=== PATIENT | male | born 1985 | race Two or more races ===

== ENCOUNTER → 2022-10-02 09:57 | Outpatient (BNVA) | payer OTHER, SELFPAY | PROVIDERS: PCP Internal Medicine; Visit Provider Nurse Practitioner Family | DX: M47.812 Spondylosis without myelopathy or radiculopathy, cervical region (principal); M54.6 Pain in thoracic spine; M54.2 Cervicalgia; G43.909 Migraine, unspecified, not intractable, without status migrainosus | CPT/HCPCS: 99202 ==

== ENCOUNTER 2022-10-05 11:22 | Outpatient (REF) | payer OTHER, SELFPAY ==
--- NOTE | ~2022-10-05 | XR_ITS ---
EXAMINATION: XR THORACIC SPINE CLINICAL INFORMATION: Pain. COMPARISON: None available. TECHNIQUE: 3 views of the thoracic spine were obtained. FINDINGS: There is normal thoracic kyphosis. The vertebral heights, alignment and disc heights are normal. No visible acute fracture, dislocation or subluxation seen. Prevertebral soft tissues are normal. XR/XR thoracic spine 3V IMPRESSION: Unremarkable dorsal spine exam.
== END 2022-10-05 11:23 | disposition home or self-care (01) ==
LOC: HO.XRAY 11:22
PROVIDERS: PCP Internal Medicine; Visit Provider Nurse Practitioner Family
DX: M54.6 Pain in thoracic spine (principal)
CPT/HCPCS: 72072

== ENCOUNTER 2022-12-24 10:00 | Outpatient (RCR) | payer OTHER, SELFPAY ==
--- NOTE | 2022-11-27 09:37 | MHC.PT.EP ---
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 Pt is deemed an appropriate candidate to receive skilled PT services to address their physical impairments in order to improve their functional ability. Frequency and Duration: The patient will be seen 2 x/ wk x 5 wks. Short Term Goals: Initiate home program. Train Driver Goals: I with home Program. Pt will perform transfers with managed Sx; initial: 8-10/10 pain at times. Improve back questionnaire by at least 9 points. Pt will be able to lift items from the ground with managed Sx. Improve core strength to at least good, initial Fair (-) limited by pain and weakness. Treatment Plan: Modalities to reduce pain, spasms and effusion. Manual therapy to restore motion and function. Therapeutic exercise to improve strength and flexibility. Neuromuscular re-education for posture and balance. Therapeutic activities to return to functional activities of daily living. Electronically signed by: Harsha Carey PT. Please sign and return to therapist. Thank you for your referral.
== END 2023-01-18 13:20 | disposition home or self-care (01) ==
LOC: HO.PTCHIC 10:00
PROVIDERS: PCP Internal Medicine; Visit Provider Nurse Practitioner Family
DX: M47.812 Spondylosis without myelopathy or radiculopathy, cervical region (principal); M54.2 Cervicalgia; M54.6 Pain in thoracic spine
CPT/HCPCS: 97110; 97140; 97161

== ENCOUNTER 2023-04-23 12:49 | Emergency (ER) | payer OTHER, SELFPAY ==
[2023-04-23 14:08] VITALS: BP 126/84; PULSE 84; RESP 16; TEMP 36.4; O2SAT 98; BMI 29.6
--- NOTE | 2023-04-23 14:46 | ED.GENADULT ---
HPI - General Adult General Chief complaint: Dizziness Stated complaint: drainage back Time Seen by Provider: 04/23/23 20:13 History of Present Illness HPI narrative: The patient is a 38-year-old male who was referred to the emergency room by his PCP for a spinal tap to check for possible neuro syphilis. The patient says that earlier this week on Wednesday he had testing at [facility] that indicated that he had tested positive for syphilis. Apparently he has been having some headaches and nausea and vomiting and dizziness and he was advised to come to the emergency room to have an LP to check for neurosyphilis. He has not had a fever. He has not had any neck stiffness. He has not had any penile discharge or other genital complaints. Related Data Home Medications Medication Instructions Recorded Confirmed atorvastatin 20 mg tablet 20 mg PO DAILY 10/02/22 gabapentin 300 mg capsule 300 mg PO BID 10/02/22 ibuprofen 800 mg tablet 800 mg PO Q8H PRN pain 10/02/22 propranolol 20 mg tablet 20 mg PO DAILY 10/02/22 Previous Rx's Medication Instructions Recorded magnesium glycinate 100 mg tablet 200 mg (2 x 100 mg) PO DAILY 10/02/22 migraines 30 days #60 tabs riboflavin (vitamin B2) 400 mg 400 mg PO DAILY migraine 90 days 10/02/22 tablet #90 tabs tizanidine 2 mg tablet 2 mg PO TID PRN muscle spasticity 10/02/22 30 days #90 tabs Allergies Allergy/AdvReac Type Severity Reaction Status Date / Time No Known Allergies Allergy Verified 10/02/22 10:03 Review of Systems Review of Systems: Yes all other systems are reviewed and are negative [facility] Past Medical History Medical History (Updated 04/24/23 @ 00:03 by Derek Weinstein) Migraine History of seizure Numbness of extremity Chiari I malformation JULIO CESAR (obstructive sleep apnea) Social History Social History (Updated 10/02/22 @ 10:[address]) Alcohol intake: former Year quit: 2011 Patient Tobacco Use Status: Former Tobacco user Quit Date: 05/24/2012 Tobacco use type: Cigarette Smoked in Last 30 Days: No Use of substances other than those prescribed or required for medical reasons: No Advance Directives: No Advance Directives Information Provided: No Physical Exam ED Vital Signs: Vital Signs - 24 hr 04/23/23 20:00 04/23/23 22:39 Temperature 98.3 F 98.0 F Pulse Rate 68 64 Respiratory Rate 14 14 Blood Pressure 124/75 128/78 Pulse Oximetry 98 96 Oxygen Delivery Method Room Air Room Air BMI result Body Mass Index 29.6 Const Other: The patient is awake, alert, pleasant, cooperative. He does not appear in acute distress. HENMT Other: The appearance of face is unremarkable. Mucous membranes moist. Eyes Other: Pupils are round equal, conjunctivae clear, extraocular movements intact. Neck Other: Neck is entirely supple. Resp Other: Lungs are clear bilaterally Cardio Other: The patient has a regular rate and rhythm with no murmur GI Other: Abdomen is soft nontender Back/Spine/Pelvis Other: Appearance of the back is unremarkable. Skin Other: Skin is dry and unremarkable. No rash. Neuro Other: The patient is awake and alert. Mentation is normal. Neck is supple. Seems completely neurologically intact. Extrem Other: No peripheral edema. Extremities are normal. Course Course Course Narrative: This is an RME: Additional HPI, ROS, PE not included below will be deferred to primary provider. Patient is a 38-year-old male who presents to the emergency department the from [place]. One week ago he had labs obtained which revealed a syphilis infection, was referred to the emergency department to have LP prior to treatment, they expressed concern for neurosyphilis. He reports dizziness, headache, nausea, and pain to the genitalia. 2-3 months with pain. Reviewed records, he has reactive RPR, titer 1:2, do not see treponemal testing results. Plan: labs, placed in WR pending bed availability Procedures Lumbar Puncture Time Out Performed: Yes Patient Position: upright Skin Prep: 0.5% Chlorhexidine/Alcohol Local Anesthetic: lidocaine 1% Amount of anesthesia used (mL): 5 Spinal Needle Gauge: 20G Interspace Used: L3-L4 Fluid Initially Obtained: clear Complications: none Medical Decision Making Medical Decision Making MDM Narrative: Patient is a 38-year-old male who recently tested positive for syphilis at his PCPs office at the [facility] in [place]. He apparently complained of some headaches and dizziness and he was advised to come to the emergency room for a spinal tap to check for neurosyphilis. The patient looks entirely well and has a supple neck. He seems neurologically intact. Nevertheless given the recommendation by his PCP's office I spoke to the patient about a spinal tap. The patient was agreeable to the procedure and consented to it. The patient had a spinal tap done in the sitting position. This was done under usual sterile conditions. The tap was successful on my 2nd attempt using a 20 gauge needle. The patient tolerated the procedure well. There are no white cells in the fluid. Protein and glucose are normal. Fluid was sent for VDRL and HIV. The patient apparently has an appointment at his PCPs office on Wednesday, in 3 days. Apparently this is to start treatment for syphilis. The patient says that the PCP wanted to get a spinal tap for treatment in case of neurosyphilis. I think this procedure and the pending VDRL satisfies the PCPs request. The patient was discharged. Lab Data 04/23/23 19:27 04/23/23 19:27 Labs: Lab Results 04/23/23 04/23/23 04/23/23 Range/Units 19:27 21:55 21:55 WBC 8.3 (4.8-10.8) X10*3/uL RBC 5.09 (4.60-5.80) X10*6/uL Hgb 14.6 (14.0-18.0) g/dl Hct 44.2 (42.0-52.0) % MCV 86.8 (80.0-98.0) fL MCH 28.7 (27.0-33.0) pg MCHC 33.0 (31.0-36.0) g/dl RDW 13.4 (11.0-16.0) % Plt Count 276 (160-400) X10*3/uL MPV 10.7 (9.4-12.4) fL Immature Gran % (Auto) 0.2 (0.0-0.4) % Neut % (Auto) 50.5 (45-73) % Lymph % (Auto) 31.7 (20-40) % Blaine % (Auto) 7.7 (2-11) % Eos % (Auto) 9.3 H (0-4) % Baso % (Auto) 0.6 (0-2) % Lymph # (Auto) 2.6 (1.2-4.9) X10*3/uL Blaine # (Auto) 0.6 (0.1-1.2) X10*3/uL Eos # (Auto) 0.8 H (0.0-0.4) X10*3/uL Baso # (Auto) 0.1 (0.0-0.2) X10*3/uL Abs Immat Gran (auto) 0.02 (0.00-0.03) X10*3/uL Absolute Neuts (auto) 4.2 (2.0-8.3) x10*3/uL Absolute Nucleated RBC 0.000 (0.0-0.012) X10*3/uL Nucleated RBC % (auto) 0.0 (0.0-0.2) /100WBC Sodium 141 (135-145) mmol/L Potassium 3.5 (3.3-5.1) mmol/L Chloride 104 (96-108) mmol/L Carbon Dioxide 29 (22-29) mmol/L Anion Gap 12 (12-20) BUN 10 (9-16) mg/dL Creatinine 0.87 (0.5-1.4) mg/dL Estim Creat Clear Calc 119.1 Estimated GFR > 60 Random Glucose 143 H (60-115) mg/dL Calcium 9.6 (8.4-10.2) mg/dL Total Bilirubin 0.6 (0.0-1.0) mg/dL AST 27 (5-37) U/L ALT 53 H (0-40) U/L Alkaline Phosphatase 85 (39-117) U/L Total Protein 7.7 (6.5-8.0) g/dL Albumin 4.5 (3.5-5.0) g/dL Urine Color Yellow Urine Appearance Clear Urine pH 6.0 (5.0-9.0) Ur Specific [place] 1.020 (1.005-1.025) Urine Protein Negative (Neg-Trace) mg/dL Urine Glucose (UA) Negative (Negative) mg/dL Urine Ketones Negative (Negative) mg/dL Urine Blood Negative (Negative) Urine Nitrite Negative (Negative) Ur Leukocyte Esterase Negative (Negative) CSF Tube Number 2 4 CSF Volume 1.0 ML CSF Appearance CLEAR CSF Color COLORLESS CSF WBC 0 MM*3 CSF RBC 16 MM*3 CSF Appearance (b) Clear, Colorless CSF Glucose 73 mg/dL CSF Total Protein 27.5 (15-45) mg/dL Discharge Plan Discharge Clinical Impression: Acquired syphilis, Encounter for lumbar puncture Patient Disposition: Home, Self-Care Instructions: Lumbar Puncture (ED) Additional Instructions: You had a procedure today called a spinal tap or lumbar puncture to obtain spinal fluid to see if you have neurosyphilis. The testing will take some time. Please rest and take it easy over the weekend. Drink a lot of fluids. Please keep your appointment on Wednesday with irregular doctor's office. Return to the emergency room if significantly worse. Prescriptions: No Action propranolol 20 mg tablet 20 mg PO DAILY atorvastatin 20 mg tablet 20 mg PO DAILY gabapentin 300 mg capsule 300 mg PO BID ibuprofen 800 mg tablet 800 mg PO Q8H PRN (Reason: pain) tizanidine 2 mg tablet 2 mg PO TID PRN (Reason: muscle spasticity) 30 Days Qty: 90 0RF riboflavin (vitamin B2) 400 mg tablet 400 mg PO DAILY 90 Days Qty: 90 1RF magnesium glycinate 100 mg tablet 200 mg PO DAILY 30 Days Qty: 60 3RF Referrals: Kim Christine MD [Primary Care Provider] - (Keep your appointment Wednesday) Interventions: ED Discharge Assessment Last Done: 04/23/23 23:17 Discharge Date/Time: 04/23/23 23:17
--- NOTE | 2023-04-23 19:29 | MHC.EDTECH ---
On report from previous Tech patient was a difficult stick, This tech obtained labs and a urine sample and pt was brought back to the waiting area.
[2023-04-23 19:41] LABS: MANUAL DIFF FLAG NO
[2023-04-23 19:43] LABS: Basophils Absolute Auto 0.1 X10*3/uL (0.0-0.2); Basophils Percent Auto 0.6 % (0-2); Eosinophils Absolute Auto 0.8 X10*3/uL (0.0-0.4); Eosinophils Percent Auto 9.3 % (0-4); Hematocrit 44.2 % (42.0-52.0); Hemoglobin 14.6 g/dl (14.0-18.0); Imm Gran Abs Auto 0.02 X10*3/uL (0.00-0.03); Imm Gran Pct Auto 0.2 % (0.0-0.4); Lymphocytes Absolute Auto 2.6 X10*3/uL (1.2-4.9); Lymphocytes Percent Auto 31.7 % (20-40); Mean Corpuscular Hemoglobin 28.7 pg (27.0-33.0); Mean Corpuscular Volume 86.8 fL (80.0-98.0); Mean Platelet Volume 10.7 fL (9.4-12.4); Monocytes Absolute Auto 0.6 X10*3/uL (0.1-1.2); Monocytes Percent Auto 7.7 % (2-11); Neutrophils Absolute Auto 4.2 x10*3/uL (2.0-8.3); Neutrophils Percent Auto 50.5 % (45-73); Platelet Count 276 X10*3/uL (160-400); Red Blood Count 5.09 X10*6/uL (4.60-5.80); Red Cell Distribution Width 13.4 % (11.0-16.0); White Blood Count 8.3 X10*3/uL (4.8-10.8)
[2023-04-23 19:44] LABS: Appearance Urine Clear; Color Urine Yellow; Glucose Urine UA Negative (Negative); Leukocyte Esterase Urine Negative (Negative); Nitrite Urine Negative (Negative); Urine Blood Negative (Negative); Urine Ketones Negative (Negative); Urine Protein Negative (Neg-Trace)
[2023-04-23 20:00] VITALS: BP 124/75; PULSE 68; RESP 14; TEMP 36.8; O2SAT 98
[2023-04-23 20:02] LABS: Alanine Aminotransferase 53 U/L (0-40); Albumin Level 4.5 g/dL (3.5-5.0); Alkaline Phosphatase 85 U/L (39-117); Anion Gap 12 (12-20); Aspartate Amino Transferase 27 U/L (5-37); Bilirubin Total 0.6 mg/dL (0.0-1.0); Blood Urea Nitrogen 10 mg/dL (9-16); Calcium 9.6 mg/dL (8.4-10.2); Carbon Dioxide 29 mmol/L (22-29); Chloride 104 mmol/L (96-108); Creatinine Clr Calc Pharmacy 119.1; Estimated Glomerular Filt Rate > 60; Glucose Random 143 mg/dL (60-115); Potassium 3.5 mmol/L (3.3-5.1); Sodium 141 mmol/L (135-145); Total Protein 7.7 g/dL (6.5-8.0)
[2023-04-23 22:39] VITALS: BP 128/78; PULSE 64; RESP 14; TEMP 36.7; O2SAT 96
[2023-04-23 22:50] LABS: Glucose CSF 73 mg/dL; Total Protein CSF 27.5 mg/dL (15-45)
[2023-04-23 22:55] LABS: CSF Appearance Clear, Colorless; CSF Tube # 2
[2023-04-23 23:09] LABS: Appearance CSF CLEAR; CSF Tube # 4; Color CSF COLORLESS
[2023-04-23 23:10] LABS: Red Blood Cell CSF 16 MM*3; White Blood Cell CSF 0 MM*3
--- NOTE | 2023-04-23 23:13 | PC.NURSE ---
pt denies pain after Lumbar puncture. pouako kura kaupapa maori utilized at discharge. vss. pt ambulatory at discharge pt provided with discharge packet pt verbalized understanding of discharge plan
[2023-04-25 09:01] LABS: Syphilis Screen Reactive (Nonreactive)
[2023-04-27 16:39] LABS: VDRL Qualitative CSF Nonreactive (Nonreactive)
[2023-04-29 17:18] LABS: HIV RNA PCR Qn Copies NOT DETECTED copies/mL (NOT DETECTED); HIV RNA PCR Qn Log Copies NOT DETECTED (NOT DETECTED)
[2023-05-01 15:08] LABS: RPR Quantitative Reactive 1:2 (Nonreactive); T.Pallidum Particle Agg Test Reactive (Nonreactive)
== END 2023-04-23 23:17 | disposition home or self-care (01) ==
PROVIDERS: Nurse Practitioner Family; Emergency Provider Emergency Medicine; PCP Internal Medicine
DX: A53.9 Syphilis, unspecified (principal); R42 Dizziness and giddiness; R51.9 Headache, unspecified; R11.2 Nausea with vomiting, unspecified; Z79.899 Other long term (current) drug therapy; Z87.891 Personal history of nicotine dependence
CPT/HCPCS: 36415; 62270; 80053; 81003; 82945; 84157; 85025; 86592; 86780; 87015; 87070; 87205; 87536; 89051; 99283; 99284

== ENCOUNTER 2023-12-01 13:45 | Outpatient (REF) | payer OTHER, SELFPAY ==
[2023-12-01 15:47] LABS: Alanine Aminotransferase 19 U/L (0-40); Albumin Level 4.4 g/dL (3.5-5.0); Alkaline Phosphatase 78 U/L (39-117); Aspartate Amino Transferase 15 U/L (5-37); Bilirubin Direct 0.1 mg/dL (0.0-0.5); Bilirubin Total 0.5 mg/dL (0.0-1.0); Total Protein 7.5 g/dL (6.5-8.0)
== END 2023-12-01 13:46 | disposition home or self-care (01) ==
LOC: HO.LAB 13:45
PROVIDERS: PCP Internal Medicine; Visit Provider Psychiatry & Neurology Neurology
DX: G43.909 Migraine, unspecified, not intractable, without status migrainosus (principal)
CPT/HCPCS: 36415; 80076

== ENCOUNTER 2025-02-28 09:10 | Outpatient (AMB) | payer OTHER, SELFPAY ==
--- NOTE | 2025-02-28 09:12 | A.OFFVIS_ITS ---
Intake Visit Reasons: 6M MIGRAINE Condominium Property Manager Required: Yes Condominium Property Manager Name: #[id number] Allergies No Known Allergies Allergy (Verified 02/28/25 09:15) Medication List - Last Reconciled 02/28/25 by Nini Macias CNP atorvastatin 20 mg PO DAILY divalproex ER (Depakote ER) 500 mg PO BID ibuprofen 800 mg PO Q8H PRN magnesium glycinate 200 mg (2 x 100 mg) PO DAILY 30 days riboflavin (vitamin B2) 400 mg PO DAILY 90 days HPI Comments Details: 40-year-old RH man with h/o chronic headaches, diagnosis of Arnold Chiari malformation made in Mar and decompressive surgery in [facility]. He was doing okay. He was only taking Depakote sometimes. He used it only when he had bad headaches and would stop when they got better. He was worried about possible side effects of medication with long-term use. He had not been taking medication for sometime now. He may have some mild headaches 2-3x/week and then could go weeks without any. He woke this morning with a little discomfort and pressure to top of head and behind eyes. [facility] Medical History (Updated 02/28/25 @ 09:15 by Nini Macias CNP) Migraine History of seizure Numbness of extremity Chiari I malformation JULIO CESAR (obstructive sleep apnea) Social History (Updated 10/02/22 @ 10:[address]) Alcohol intake: former Year quit: 2011 Patient Tobacco Use Status: Former Tobacco user Tobacco use type: Cigarette Review of Systems Const Denies chills, Denies daytime sleepiness, Denies difficulty sleeping, Denies fatigue, Denies fever(s), Denies frequent falls, Reports headache(s), Denies inc reased appetite, Denies poor appetite, Denies snoring, Denies weakness, Denies weight gain and Denies weight loss Eyes Denies loss of vision ENT Denies vertigo, Denies dizziness and Reports headache(s) Card Denies chest pain at rest, Denies chest pain with activity, Denies syncope, Denies leg edema and Denies palpitations Resp Denies snoring GI Denies constipation, Denies heartburn, Denies diarrhea and Denies nausea Denies urinary frequency, Denies urinary incontinence and Denies urinary urgency Musc Denies abnormal gait, Denies numbness and Denies tingling Skin/Breast Denies dry skin and Denies rash Neuro Denies abnormal gait, Denies vertigo, Denies dizziness, Denies syncope, Denies frequent falls, Reports headache(s), Denies lack of coordination, Denies loss of vision, Denies memory loss, Denies numbness, Denies restless legs, Denies seizure-like activity, Denies tingling, Denies paresthesias, Denies tremor(s) and Denies weakness Psych Denies anxiety, Denies depression, Denies auditory hallucinations, Denies memory loss, Denies visual hallucinations and Denies suicidal ideation Endo Denies fatigue and Denies palpitations Physical Exam Const Other: General Appearance:? normal, in no acute distress. Skin:? no rashes, no significant birthmarks. Heart:? S1, S2 normal, no murmurs. Lungs:? clear anteriorly and posteriorly. Extremities:? no edema. Psych:? alert, oriented, cognitive function intact, cooperative with exam. Neuro Other: Mental Status:?Normal attention, orientation, memory and affect.? Cranial Nerves:?Pupils are equal, round and reactive to light. External occular muscles are intact. Visual shipman are full. Face is symmetrical. Facial sensations are normal. Tongue is midline. Palate elevates symmetrically. Shoulder shrugging is normal. Hearing to bedside conversation is normal. Sensory Exam:?....? Coordination:?No ataxia,?no titubation.? Gait Exam: Within normal limits. Extrapyramidal System:?No tremor, rigidity with normal facial expressions.? Pronator Drift:?Not present.? Involuntary Movements:?No tremors seen.? Speech:?Normal.? Results Reviewed Results Reviewed: MRI brain WO at [facility] in Dec 2022: post decomp surgery,ethmoid sinus area cyst Routine EEG at [facility] in Dec 2021: WNL Assessment & Plan Assessment & Plan (1) Migraine: Code(s): G43.909 - Migraine, unspecified, not intractable, without status migrainosus Category: Medical Qualifiers: Migraine type: unspecified Status migrainosus presence: without status migrainosus Intractability: not intractable Qualified Code(s): G43.909 - Migraine, unspecified, not intractable, without status migrainosus Plan: He was not taking Depakote regularly. No medication side effects, however he was concerned about side effects with long-term use, and medication was disc ontinued. Given infrequent migraine episodes, preventive medication was not indicated at this time. Start rizatriptan 10mg 1 tablet as needed for migraine, use/side effects reviewed. He was advised to contact office for any new/worsening symptoms. (2) Arnold-Chiari malformation: Code(s): Q07.00 - Arnold-Chiari syndrome without spina bifida or hydrocephalus Category: Medical (3) S/P craniotomy: Code(s): Z98.890 - Other specified postprocedural states Category: Surgical Plan Meds tried: topiramate, propranalol, sumatriptan, advil, naproxen, tylenol, depakote Medications: New rizatriptan take 1 tab at onset of headache; if no relief may repeat 1 tab after at least 4 hrs; max = 2 tabs/24 hr PO 10 tabs 5RF 30 days Coding Level of Care Code Est Pt Level 4 (99076) Diagnoses Migraine without status migrainosus, not intractable, unspecified migraine type G43.909 Migraine type: unspecified Status migrainosus presence: without status migrainosus Intractability: not intractable Arnold-Chiari malformation Q07.00 S/P craniotomy Z98.890
== END 2025-02-28 09:31 | disposition home or self-care (01) ==
LOC: HO.HSM 09:11
PROVIDERS: PCP Internal Medicine; Referring Provider Internal Medicine; Visit Provider Registered Nurse
DX: G43.909 Migraine, unspecified, not intractable, without status migrainosus (principal); Q07.00 Arnold-Chiari syndrome without spina bifida or hydrocephalus; Z98.890 Other specified postprocedural states
CPT/HCPCS: 99214

== ENCOUNTER → 2025-02-28 09:10 | Outpatient (BNVA) | payer OTHER, SELFPAY | PROVIDERS: PCP Internal Medicine; Referring Provider Internal Medicine; Visit Provider Registered Nurse | DX: G43.909 Migraine, unspecified, not intractable, without status migrainosus (principal); Q07.00 Arnold-Chiari syndrome without spina bifida or hydrocephalus; Z98.890 Other specified postprocedural states | CPT/HCPCS: 99212 ==